=== PATIENT | male | born 1980 | race Caucasian/White ===

== ENCOUNTER 2016-08-20 17:56 | Outpatient (CLI) ==
--- NOTE | 2016-08-21 07:58 | DI ---
EXAM: PA and lateral views of the chest HISTORY: Pre employment health screen COMPARISON: Chest x-ray 02/13/2014 FINDINGS: The cardiomediastinal silhouette is that unchanged. There is no pneumothorax or pleural effusion. There is no consolidation, nodule or mass. The osseous structures are unremarkable. IMPRESSION: No acute cardiopulmonary process
== END 2016-08-20 17:57 | disposition home or self-care (01) ==
LOC: RAD 17:56
PROVIDERS: ATTEND Physician Assistant Medical
DX: Z02.1 Encounter for pre-employment examination (principal)